=== PATIENT | male | born 1995 | race Caucasian/White ===

== ENCOUNTER → 2017-10-24 | Outpatient (CLI) | payer OTHER ==
--- NOTE | 2017-10-24 20:37 | RADIOLOGY IMAGING REPORT ---
[place] [facility] [place] Jim Lerma : 1995 MR: [id number] V: [id number] EXAM DATE: ORDERING PHYSICIAN: MIRIAM PAINTER TECHNOLOGIST[place] [facility] [place] Jim Lerm[place] : 1995 Visit/Account:[id number] Date of Sevice: 10/24/2017 EXAMINATION: Head CT without intravenous contrast History: Headache TECHNIQUE: Contiguous axial images were obtained from the skull base to the vertex without intraven ous contrast. One of the following dose optimization techniques was utilized in the performance of th is exam: Automated exposure control; adjustment of the mA and/or kV according to the patient's size; or use of an iterative reconstruction technique. Specific details can be referenced in the facility 's radiology CT exam operational policy. COMPARISON STUDIES: none FINDINGS: Visualized mastoid air cells / paranasal sinuses: negative Calvarium and scalp: negative White matter: negative Dural venous sinuses / arterial structures: negative Ventricles / sulci / fissures: negative Masses / hemorrhage / midline shift: negative Extra-axial spaces: Negative. 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 IMPRESSION: 1. No evidence of an intracranial mass, hemorrhage or acute ischemia. 2. Chiari I malformation.. Report Dictated By: Carson Ruffin MD at 10/24/2017 8:28 PM Report E-Signed By: Carson Ruffin MD at 10/24/2017 8:34 PM WSN:[id number]
== END ==
LOC: CT 20:00
PROVIDERS: ATTEND Nurse Practitioner Family
DX: G93.5 Compression of brain (principal)
CPT/HCPCS: 70450